=== PATIENT | male | born 1985 | race Caucasian/White ===

== ENCOUNTER 2018-04-18 09:06 | Emergency (ER) | payer SELFPAY ==
[2018-04-18] MEDS ORDERED: LIDO/EPI 1% **for epidural** 30 ML SDV ONE (09:52)
--- NOTE | 2018-04-18 10:00 | EDPHY ---
H & P Smoking Status: Current every day smoker Time Seen by Provider: 04/18/18 09:39 HPI/ROS: CHIEF COMPLAINT: Laceration left hand HISTORY OF PRESENT ILLNESS: 32-year-old male presents to the emergency department laceration to his left hand. The patient was at home cleaning a glass dish and this broken a accidentally cut his hand. The incident happened just prior to arrival. He complains of isolated pain to the left hand. He believes his tetanus shot is current. He is right-hand dominant. ROS: Denies numbness or tingling in his fingers, pain in his wrist or elbow. Denies retained foreign body. (Amparo Lakhani) Past Medical/Surgical History: Negative (Amparo Lakhani) Social History: Recently moved to [place] a few months ago from [place] (Amparo Lakhani) Physical Exam: On examination, the patient has a 2 cm flap laceration to the palmar aspect of the left hand between the webspace of the thumb and the index finger. There is slow active bleeding noted. He has normal sensation to light touch with normal 2 point discrimination. No palpable bony tenderness. No tendon injury identified. Full range of motion of the fingers. Strong radial pulse at the left wrist. (Amparo Lakhani) Constitutional: Initial Vital Signs Temperature (C) 36.7 C 04/18/18 09:14 Heart Rate 57 L 04/18/18 09:14 Respiratory Rate 16 04/18/18 09:14 Blood Pressure 129/70 H 04/18/18 09:14 O2 Sat (%) 94 04/18/18 09:14 O2 Delivery Mode Room Air Allergies/Adverse Reactions: Penicillins Allergy (Verified 04/18/18 09:13) Home Medications: Medication Instructions Recorded NK [No Known Home Meds] 04/18/18 MDM/Departure - MDM Procedures: Laceration repair. Verbal consent was obtained from the patient. The 2 cm flap laceration on the left hand was anesthetized using 1% lidocaine with epinephrine. The wound was irrigated with saline, draped and explored to its base with a gloved finger. There were no deep structures involved. No tendon injury was identified. The wound was repaired with 4 0 Ethilon, 3 sutures. The wound repair was simple. The procedure was performed by myself. (Amparo Lakhani) ED Course/Re-evaluation: 32-year-old male presents to the emergency department with laceration to the left hand. The wound was repaired, see procedure note. He believes his tetanus shot is current. He was given wound care precautions. (Amparo Lakhani) The patient was evaluated and managed by the physician business support assistant. I have reviewed this chart and I agree with the findings and plan of care as documented , as indicated by my signature. I am the secondary supervising physician. ( Soco Vasques) - Depart Disposition: Home, Routine, Self-Care Clinical Impression: Laceration of left hand Condition: Good Instructions: Care For Your Stitches (ED), Laceration (ED), Acute Wounds (ED) Additional Instructions: Re-chequeo del cuidado de heridas con puntadas: El quitado de las puntadas son en [ 10 ] oliver. Natividad servicio es complementario en casos sin complicacion. Si se encuentra infeccion o algo fuera de lo normal debe ser visto por un medico. En natividad zoe puede ser cobrado. Wound Care Follow-Up: Removal of sutures in 10 days. Suture removal is complimentary in uncomplicated cases. Infection or abnormal findings would require reevaluation by the MD. In that case, you may be billed. Keep wound dry, clean and protected. Return to the emergency department if you notice any signs or symptoms of infection such as redness, swelling, increased pain, fever, purulent drainage. Mantener la herida seca, limpia y protegida. Regresar a la norma de emergencia si notas cualquier signo u sintoma de infeccion beau tiara rojez, hinchazon, aumento de dolor, fiebre u drenaje purulento. Referrals: Aly Sarkar DO [Doctor of Osteopathy] - 2-3 days, if not improved (Primary care provider air conditioning mechanic) Print Language: Azeri
[2018-04-18 10:27] VITALS: BP 118/66
== END 2018-04-18 10:18 | disposition home or self-care (01) ==
PROC: 0HQGXZZ Repair Left Hand Skin, External Approach (ICD-10-PCS; principal; 2018-04-18)
DX: S61.412A Laceration without foreign body of left hand, initial encounter (principal); W25.XXXA Contact with sharp glass, initial encounter; Y93.G1 Activity, food preparation and clean up; Y99.8 Other external cause status; Y92.019 Unspecified place in single-family (private) house as the place of occurrence of the external cause